=== PATIENT | female | born 1950 | race Caucasian/White ===

== ENCOUNTER 2017-01-24 12:37 | Outpatient (CLI) | payer MEDICARE ==
--- NOTE | 2017-01-27 13:59 | DEXA Report ---
DEXA SCAN : 01/26/2017 CLINICAL INDICATION: Postmenopausal osteopenia. TECHNIQUE: Dual energy x-ray absorptiometry (DXA) was performed on a [place] system. Regions measured are the AP spine, femoral neck, and, if needed, forearm. COMPARISON: None. In accordance with the International Society for Clinical Densitometry (ISCD) guidelines, data from previous exams may be reanalyzed using current recommendations and techniques. This is done to allow a more accurate basis for comparison with the current study. FINDINGS: The data for the lumbar spine is as follows: REGION BMD (g/cm/cm) T-SCORE Z-SCORE L1 0.886 -2.0 -0.9 L2 0.912 -2.4 -1.3 L3 1.000 -1.7 -0.6 L4 1.044 -1.3 -0.2 TOTAL 0.967 -1.8 -0.7 NOTE: All evaluable vertebrae are used for classification. The data for the hip is as follows: REGION BMD (g/cm/cm) T-SCORE Z-SCORE Neck 0.863 -1.3 0.0 TOTAL 0.781 -1.8 -0.9 IMPRESSION: THE WHO CLASSIFICATION BASED ON THE INTERNATIONAL REFERENCE STANDARD IS OSTEOPENIA. THE FRACTURE RISK IS INCREASED. RECOMMENDATION: Patients with diagnosis of osteoporosis or osteopenia should have regular bone mineral density assessment. For those eligible for Medicare, routine testing is allowed once every 2 years. Testing frequency can be increased for patients who have rapidly progressing disease or for those who are receiving medical therapy to restore bone mass. COMMENT: World Health Organization (WHO) definitions for osteoporosis and osteopenia: NORMAL BMD: T-score at 1.0 or higher, fracture risk is low. OSTEOPENIA BMD: T-score between 1.0 and -2.5, fracture risk is increased. OSTEOPOROSIS BMD: T-score at 2.5 or lower, fracture risk high. National Osteoporosis Foundation recommends: 1. Obtain adequate dietary calcium (at least 1200 mg per day) and vitamin D (400 -800 international units per day). 2. Participate, as appropriate, in regular weightbearing and muscle- strengthening exercise. 3. Avoid tobacco use and reduce alcohol and caffeine intake. 4. For more detailed information see the website at www.NOF.org. TD: 01/26/2017 09:16 [facility]
== END 2017-01-24 12:38 | disposition home or self-care (01) ==
LOC: DI 12:37
PROVIDERS: ATTEND Family Medicine Addiction Medicine
DX: M85.80 Other specified disorders of bone density and structure, unspecified site (principal)
CPT/HCPCS: 77080

== ENCOUNTER 2017-09-22 08:53 | Emergency (ER) | payer MEDICARE ==
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
[2017-09-22] MEDS ORDERED: diphenhydrAMINE INJ 50 MG/ML VIAL IM STA (09:12)
[2017-09-22] MEDS ORDERED: DEXAMETHASONE 10 MG/ML VIAL PO STA (09:12)
[2017-09-22] MEDS ORDERED: CETIRIZINE 10 MG TABLET PO STA (09:12)
[2017-09-22] MEDS ORDERED: CHERRY SYRUP 10 ML UDC PO ONE (09:21)
[2017-09-22 10:10] VITALS: BP 137/69
== END 2017-09-22 10:10 | disposition home or self-care (01) ==
LOC: ED 08:53
DX: T63.461A Toxic effect of venom of wasps, accidental (unintentional), initial encounter (principal)
CPT/HCPCS: 96372; 99283; A9270; J1200

== ENCOUNTER 2019-02-06 13:07 | Outpatient (CLI) | payer MEDICARE ==
--- NOTE | 2019-02-08 09:15 | DEXA Report ---
Reason: OSTEOPOROSIS Procedure Date: 02/06/2019 Accession Number: [id number] / [id number] Procedure: DEX - Dexa Spine and/or Hip CPT Code: Final Report FULL RESULT: EXAM: Dexa Spine and/or Hip DATE: 02/06/2019 1:28 PM CLINICAL HISTORY: OSTEOPOROSIS TECHNIQUE: Dual energy x-ray absorptiometry (DXA) was performed on a [employer] System. Regions measured are the AP Spine, femoral neck, and if needed forearm. COMPARISON: 01/24/2017. In accordance with the International Society for Clinical Densitometry (ISCD) guidelines, data from previous exams may be reanalyzed using current recommendations and techniques. This is done to allow a more accurate basis for comparison with the current study. FINDINGS: The data for the lumbar spine is as follows: BMD (g/cm/cm) T-SCORE Z-SCORE REGION L1 0.961 -1.4 -0.5 L2 1.026 -1.4 -0.5 L3 1.016 -1.5 -0.6 L4 1.050 -1.3 -0.3 TOTAL 1.014 -1.4 -0.4 NOTE: All evaluable vertebrae are used for classification The data for the hip is as follows: BMD (g/cm/cm) T-SCORE Z-SCORE REGION Neck 0.841 -1.4 -0.2 TOTAL 0.812 -1.6 -0.6 NOTE: The femoral neck or total proximal femur, whichever is lowest, is used for classification. DXA RESULTS SUMMARY: Spine SCAN DATE AGE BMD CHANGE VS CHANGE VS PREVIOUS PREVIOUS % [birth year]2019 [age] 1.014 0.047* 4.9* 01[birth year]/2017 [age] 0.967 * Denotes significant change at the 95% confidence level. Denotes dissimilar scan types or analysis methods. DXA RESULTS SUMMARY: Hip SCAN DATE AGE BMD CHANGE VS CHANGE VS PREVIOUS PREVIOUS % [birth year]2019 [age] 0.812 0.031 4.0 01[birth year]/2017 [age] 0.781 * Denotes significant change at the 95% confidence level. Denotes dissimilar scan types or analysis methods. IMPRESSION: THE WHO CLASSIFICATION BASED ON THE INTERNATIONAL REFERENCE STANDARD IS OSTEOPENIA. THE FRACTURE RISK IS INCREASED. Interval statistically significant decrease in bone density in the lumbar spine. RECOMMENDATION: Patients with diagnosis of osteoporosis or osteopenia should have regular bone mineral density assessment. For those eligible for Medicare, routine testing is allowed once every 2 years. Testing frequency can be increased for patients who have rapidly progressing disease or for those who are receiving medical therapy to restore bone mass. COMMENT: World Health Organization (WHO) definitions for osteoporosis and osteopenia: NORMAL BMD: T-score at -1.0 or higher, fracture risk is low OSTEOPENIA BMD: T-score between -1.0 and -2.5, fracture risk is increased. OSTEOPOROSIS BMD: T-score at -2.5 or lower, fracture risk is high. National Osteoporosis Foundation recommends: 1. Obtain adequate dietary calcium (at least 1200 mg per day) and vitamin D (400-800 international units per day). 2. Participate, as appropriate, in regular weightbearing and muscle-strengthening exercise. 3. Avoid tobacco use and reduce alcohol and caffeine intake. 4. For more detailed information see the website at www.NOF.org.
== END 2019-02-06 13:08 | disposition home or self-care (01) ==
LOC: DI 13:07
PROVIDERS: ATTEND Family Medicine
DX: M85.89 Other specified disorders of bone density and structure, multiple sites (principal)
CPT/HCPCS: 77080

== ENCOUNTER 2021-01-19 10:51 | Outpatient (CLI) | payer MEDICARE ==
--- NOTE | 2021-01-21 14:22 | Mammography Report ---
BILATERAL DIGITAL SCREENING MAMMOGRAM 3D/2D: 01/19/2021 CLINICAL: Routine screening. Comparison is made to exam dated: 11/10/2012 mammogram - [facility]. There are sca ttered fibroglandular elements in both breasts. No significant masses, calcifications, or other findings are seen in either breast. There has been no significant interval change. IMPRESSION: NEGATIVE There is no mammographic evidence of malignancy. A 1 year screening mammogram is recommended. This exam was interpreted at Station ID: [id number]. NOTE: For mammograms, a report in lay terms will be sent to the patient. Approximately 15% of breast malignancies will not be visualized mammographically. In the management of a palpable breast mass, a negative mammogram must not discourage biopsy of a clinically suspicious lesion. Electronically Signed By: Amanda staley/libby:01/20/2021 08:29:18 ACR BI-RADS Category 1: Negative 3341F PARENCHYMAL PATTERN: (A) - The breast(s) demonstrate(s) scattered fibroglandular densities. BI-RADS CATEGORY: (1) - 1 RECOMMENDATION: (ANNUAL) - Recommend routine annual screening mammography. [id number] 1 year screening LATERALITY: (B)
== END 2021-01-19 10:52 | disposition home or self-care (01) ==
LOC: DI.S 10:51
DX: Z12.31 Encounter for screening mammogram for malignant neoplasm of breast (principal)

== ENCOUNTER 2021-03-13 16:10 | Outpatient (CLI) | payer MEDICARE ==
[2021-03-13 20:19] LABS: BILIRUBIN,URINE NEGATIVE (NEGATIVE); GLUCOSE, URINE (UA) NEGATIVE (NEGATIVE); KETONES,URINE (UA) NEGATIVE (NEGATIVE); LEUKOCYTE ESTERASE, URINE NEGATIVE (NEGATIVE); NITRITE,URINE NEGATIVE (NEGATIVE); OCCULT BLOOD,URINE NEGATIVE (NEGATIVE); PROTEIN,URINE NEGATIVE (NEGATIVE); UROBILINOGEN,URINE 0.2 (NORMAL) E.U./dL (NORMAL)
[2021-03-13 20:23] LABS: CLARITY,URINE CLEAR (CLEAR)
== END 2021-03-13 16:11 | disposition home or self-care (01) ==
LOC: LAB.S 16:10
PROVIDERS: ATTEND Physician Assistant
DX: R30.0 Dysuria (principal)
CPT/HCPCS: 81001; 81003; 87086

== ENCOUNTER 2021-04-23 10:07 | Outpatient (CLI) | payer MEDICARE ==
[2021-04-23 14:32] LABS: HCT - HEMATOCRIT 37.9 % (37.0-47.0); HGB - HEMOGLOBIN 11.8 g/dL (12.0-16.0); MEAN CORPUSCULAR HEMOGLOBIN 31.1 pg (27.0-31.0); MEAN CORPUSCULAR HGB CONC 31.1 g/dL (32.0-36.0); MEAN CORPUSCULAR VOLUME 99.7 fL (81.0-99.0); MEAN PLATELET VOLUME 9.6 fL (7.9-10.8); RED BLOOD COUNT 3.8 10^6/uL (4.20-5.40); WHITE BLOOD COUNT 3.6 x10^3/uL (4.8-10.8)
[2021-04-23 14:48] LABS: ALBUMIN 4.3 g/dL (3.2-5.5); ALBUMIN/GLOBULIN RATIO 1.4 (1.0-2.2); ALKALINE PHOSPHATASE 87 IU/L (42-121); ALT ALANINE AMINOTRANSFERASE 13 IU/L (10-60); AST ASPARTATE AMINOTRANSFERASE 18 IU/L (10-42); BILIRUBIN,TOTAL 0.5 mg/dL (0.2-1.0); BUN - BLOOD UREA NITROGEN 16 mg/dL (6-20); CALCIUM 9.3 mg/dL (8.5-10.3); CARBON DIOXIDE - CO2 26 mmol/L (21-32); CHLORIDE 101 mmol/L (101-111); CHOL/HDL RATIO 2.5 (<4.4); CHOLESTEROL 208 mg/dL; CREATININE 0.7 mg/dL (0.4-1.0); GFR - MDRD 82 (>89); GLUCOSE 116 mg/dL (70-100); HDL CHOLESTEROL 84 mg/dL; LDL CHOLESTEROL,CALCULATED 109 mg/dL; LDL/HDL RATIO 1.3 (<4.4); POTASSIUM 4.3 mmol/L (3.5-5.0); SODIUM 136 mmol/L (135-145); TOTAL PROTEIN 7.3 g/dL (6.7-8.2); TRIGLYCERIDES 76 mg/dL; VLDL CHOLESTEROL 15 mg/dL
[2021-04-23 15:02] LABS: ESTIMATED AVERAGE GLUCOSE 97 mg/dL (70-100); THYROID STIMULATING HORMONE 0.82 uIU/mL (0.34-5.60)
== END 2021-04-23 10:08 | disposition home or self-care (01) ==
LOC: LAB.S 10:07
PROVIDERS: ATTEND Physician Assistant
DX: E03.9 Hypothyroidism, unspecified (principal); E55.9 Vitamin D deficiency, unspecified; Z86.2 Personal history of diseases of the blood and blood-forming organs and certain disorders involving the immune mechanism
CPT/HCPCS: 36415; 80053; 80061; 82306; 83036; 83721; 84443; 85027

== ENCOUNTER 2021-11-24 11:43 | Outpatient (CLI) | payer MEDICARE ==
--- NOTE | 2021-11-24 15:50 | XRAY Report ---
PROCEDURE: Foot 3 View RT INDICATIONS: FOOT XRAY TECHNIQUE: 3 views of the foot were acquired. COMPARISON: None FINDINGS: Bones: No fractures or dislocations. No suspicious bony lesions. Severe first metatarsophalangeal joint space narrowing with marginal osteophytes and remodeling of the proximal phalangeal base. Soft tissues: No tibiotalar joint effusion. Achilles tendon appears normal. IMPRESSION: Severe first MTP osteoarthritis Reviewed by: Pascual Sharp MD on 11/24/2021 2:49 PM AKDT Approved by: Pascual Sharp MD on 11/24/2021 2:49 PM AKDT Station ID: [id number]
== END 2021-11-24 11:44 | disposition home or self-care (01) ==
LOC: DI 11:43
PROVIDERS: ATTEND Podiatrist
DX: M19.071 Primary osteoarthritis, right ankle and foot (principal)

== ENCOUNTER 2022-08-04 12:38 | Outpatient (CLI) | payer MEDICARE ==
--- NOTE | 2022-08-05 09:26 | Mammography Report ---
BILATERAL DIGITAL SCREENING MAMMOGRAM 3D/2D: 08/04/2022 CLINICAL: Routine screening. Comparison is made to exam dated: 01/19/2021 mammogram - [facility]. There are scattered areas of fibroglandular density in both breasts (category b / 25%-50% glandular t issue). There is a possible new oval asymmetry in the left breast middle depth lateral region seen on the aircraft systems repairer niocaudal view only. No other significant masses, calcifications, or other findings are seen in either breast. IMPRESSION: INCOMPLETE: NEEDS ADDITIONAL IMAGING EVALUATION The possible new oval asymmetry in the left breast is indeterminate. Additional views with possible ultrasound are recommended. Based on the Tyrer Cuzick model (a risk assessment model) the patients lifetime risk is 2.9% and her 10 year risk is 2.3%. According to the ACR, ACS, and NCCN guidelines, an annual breast MRI exam kuldeep g with mammogram is recommended if the patients lifetime risk is 20% or greater. This exam was interpreted at Station ID: [id number]. NOTE: For mammograms, a report in lay terms will be sent to the patient. Approximately 15% of breast malignancies will not be visualized mammographically. In the management of a palpable breast mass, a negative mammogram must not discourage biopsy of a clinically suspicious lesion. Electronically Signed By: Corby Mendiola M.D. aty/:08/04/2022 17:11:09 ACR BI-RADS Category 0: Incomplete 3340F PARENCHYMAL PATTERN: (A) - The breast(s) demonstrate(s) scattered fibroglandular densities. BI-RADS CATEGORY: (0) - 0 Mammo and [place] [id number] Immediate follow-up LATERALITY: (L)
== END 2022-08-04 12:39 | disposition home or self-care (01) ==
LOC: DI.S 12:38
DX: Z12.31 Encounter for screening mammogram for malignant neoplasm of breast (principal); R92.8 Other abnormal and inconclusive findings on diagnostic imaging of breast

== ENCOUNTER 2022-09-03 10:25 | Outpatient (CLI) | payer MEDICARE ==
--- NOTE | 2022-09-06 11:59 | Ultrasound Report ---
LIMITED ULTRASOUND OF LEFT BREAST: 09/03/2022 CLINICAL: Patient returns today to evaluate a focal asymmetry in the left breast. Comparison is made to exams dated: 09/03/2022 mammogram, 08/04/2022 mammogram, 01/19/2021 mammogram, a nd 11/10/2012 mammogram - [facility]. Real-time ultrasound of the left breast 2-4 o'clock region was performed. Huizar scale images of the real-time examination were reviewed. No significant abnormalities were seen sonographically in the left breast. IMPRESSION: PROBABLY BENIGN There is no abnormality seen in the left breast to correspond with the mammography finding. A follow-up mammogram in 6 months is recommended to demonstrate stability of the mammographic possibl e asymmetry. This exam was interpreted at Station ID: [id number]. Electronically Signed By: Zay Wallis M.D. lc/:09/03/2022 11:40:56 Ultrasound BI-RADS: 3 Probably benign BI-RADS CATEGORY: (3) - 3 Mammogram [id number] 6 month follow-up LATERALITY: (B)
--- NOTE | 2022-09-06 11:59 | Mammography Report ---
UNILATERAL LEFT DIGITAL DIAGNOSTIC MAMMOGRAM 3D/2D WITH SPOT COMPRESSION: 09/03/2022 CLINICAL: Patient returns today to evaluate an asymmetry in the left breast. Comparison is made to exams dated: 08/04/2022 mammogram, 01/19/2021 mammogram, and 11/10/2012 mammogra m - [facility]. There are scattered areas of fibroglandular density in the left breast (category b / 25%-50% glandula r tissue). There is a possible oval asymmetry in the left breast middle depth lateral region seen on the cranioc audal view only. No other significant masses or calcifications are seen in the breast. IMPRESSION: INCOMPLETE: NEEDS ADDITIONAL IMAGING EVALUATION The possible oval asymmetry in the left breast is indeterminate. An ultrasound is recommended. Based on the Tyrer Cuzick model (a risk assessment model) the patients lifetime risk is 2.9% and her 10 year risk is 2.3%. According to the ACR, ACS, and NCCN guidelines, an annual breast MRI exam kuldeep g with mammogram is recommended if the patients lifetime risk is 20% or greater. This exam was interpreted at Station ID: [id number]. NOTE: For mammograms, a report in lay terms will be sent to the patient. Approximately 15% of breast malignancies will not be visualized mammographically. In the management of a palpable breast mass, a negative mammogram must not discourage biopsy of a clinically suspicious lesion. Electronically Signed By: Zay Wallis M.D. lc/:09/03/2022 11:39:11 ACR BI-RADS Category 0: Incomplete 3340F PARENCHYMAL PATTERN: (A) - The breast(s) demonstrate(s) scattered fibroglandular densities. BI-RADS CATEGORY: (0) - 0 Ultrasound [id number] Immediate follow-up LATERALITY: (B)
== END 2022-09-03 10:26 | disposition home or self-care (01) ==
LOC: DI 10:25
PROVIDERS: ATTEND Family Medicine
DX: R92.8 Other abnormal and inconclusive findings on diagnostic imaging of breast (principal)

== ENCOUNTER 2022-09-16 09:55 | Outpatient (CLI) | payer MEDICARE ==
[2022-09-16 14:27] LABS: BASOPHILS % (AUTO) 0.6 %; EOSINOPHILS # (AUTO) 0.1 10^3/uL (0.0-0.7); EOSINOPHILS % (AUTO) 2.7 %; HCT - HEMATOCRIT 42.7 % (37.0-47.0); HGB - HEMOGLOBIN 13.8 g/dL (12.0-16.0); LYMPHOCYTES % (AUTO) 29.3 %; MEAN CORPUSCULAR HEMOGLOBIN 31.1 pg (27.0-31.0); MEAN CORPUSCULAR HGB CONC 32.3 g/dL (32.0-36.0); MEAN CORPUSCULAR VOLUME 96.2 fL (81.0-99.0); MEAN PLATELET VOLUME 9.9 fL (7.9-10.8); MONOCYTES # (AUTO) 0.3 10^3/uL (0.0-1.0); MONOCYTES % (AUTO) 8.5 %; NEUTROPHILS # (AUTO) 1.9 10^3/uL (1.5-6.6); NEUTROPHILS % (AUTO) 58.6 %; PLT - PLATELET COUNT 309 10^3/uL (130-450); RED BLOOD COUNT 4.44 10^6/uL (4.20-5.40); RED CELL DISTRIBUTION WIDTH 12.9 % (12.0-15.0); WHITE BLOOD COUNT 3.3 x10^3/uL (4.8-10.8)
[2022-09-16 15:05] LABS: FERRITIN 17.6 ng/mL (11.0-306.8)
== END 2022-09-16 09:56 | disposition home or self-care (01) ==
LOC: LAB.S 09:55
PROVIDERS: ATTEND Family Medicine
DX: E55.9 Vitamin D deficiency, unspecified (principal); Z78.9 Other specified health status; Z86.2 Personal history of diseases of the blood and blood-forming organs and certain disorders involving the immune mechanism
CPT/HCPCS: 36415; 82306; 82607; 82728; 83540; 84466; 85025

== ENCOUNTER 2023-01-20 11:42 | Outpatient (CLI) | payer MEDICARE ==
--- NOTE | 2023-01-20 13:45 | XRAY Report ---
PROCEDURE: Hand 2 View BILAT INDICATIONS: INFLAMMATORY ARTHRITIS TECHNIQUE: 3 views of the hand(s) acquired. COMPARISON: Same day right wrist radiographs. FINDINGS: Bones: No fractures or dislocations. Mild degenerative changes seen. No osseous erosion. Question pe riarticular lucency the the left hand fourth digit PIP joint. No suspicious bony lesions. Soft tissues: No suspicious soft tissue calcifications or masses. IMPRESSION: Question periarticular lucency at the left hand fourth digit PIP joint. Reviewed by: Jimmy Warren MD on 01/20/2023 1:44 PM PST Approved by: Jimmy Warren MD on 01/20/2023 1:44 PM PST Station ID: [id number]
--- NOTE | 2023-01-20 14:13 | XRAY Report ---
PROCEDURE: Wrist 3 View RT INDICATIONS: INFLAMMATORY ARTHRITIS TECHNIQUE: 3 views of the wrist were acquired. COMPARISON: Same day bilateral hand radiographs. FINDINGS: Bones: No fractures or dislocations. No osseous erosion. No suspicious bony lesions. Mild degener ative changes seen. Soft tissues: No suspicious soft tissue calcifications or masses. IMPRESSION: Mild degenerative changes seen. Reviewed by: Jimmy Warren MD on 01/20/2023 2:12 PM PST Approved by: Jimmy Warren MD on 01/20/2023 2:12 PM PST Station ID: [id number]
[2023-01-20 15:19] LABS: ABSOLUTE RETICS # AUTO 0.079 10^6/uL (0.020-0.110); BASOPHILS % (AUTO) 0.7 %; EOSINOPHILS # (AUTO) 0.1 10^3/uL (0.0-0.7); EOSINOPHILS % (AUTO) 1.7 %; HCT - HEMATOCRIT 39.4 % (37.0-47.0); HGB - HEMOGLOBIN 12.5 g/dL (12.0-16.0); LYMPHOCYTES # (AUTO) 0.8 10^3/uL (1.5-3.5); LYMPHOCYTES % (AUTO) 18.2 %; MEAN CORPUSCULAR HEMOGLOBIN 31.2 pg (27.0-31.0); MEAN CORPUSCULAR HGB CONC 31.7 g/dL (32.0-36.0); MEAN CORPUSCULAR VOLUME 98.3 fL (81.0-99.0); MEAN PLATELET VOLUME 9.7 fL (7.9-10.8); MONOCYTES # (AUTO) 0.3 10^3/uL (0.0-1.0); MONOCYTES % (AUTO) 6.5 %; NEUTROPHILS # (AUTO) 3.4 10^3/uL (1.5-6.6); NEUTROPHILS % (AUTO) 72.7 %; PLT - PLATELET COUNT 332 10^3/uL (130-450); RED BLOOD COUNT 4.01 10^6/uL (4.20-5.40); RED CELL DISTRIBUTION WIDTH 13.1 % (12.0-15.0); RETICULOCYTE COUNT % (AUTO) 1.98 % (0.5-2.3); WHITE BLOOD COUNT 4.6 x10^3/uL (4.8-10.8)
[2023-01-20 15:44] LABS: THYROID STIMULATING HORMONE 0.93 uIU/mL (0.34-5.60)
[2023-01-20 15:45] LABS: % IRON SATURATION 83 % (20-50); CRP - C-REACTIVE PROTEIN < 0.5 mg/dL (<0.5); IRON 269 ug/dL (50-212); TOTAL IRON BINDING CAPACITY 323 ug/dL (250-450); TRANSFERRIN 231 mg/dL (203-362)
[2023-01-20 15:52] LABS: FERRITIN 12.4 ng/mL (11.0-306.8)
--- NOTE | 2023-01-20 18:54 | XRAY Report ---
PROCEDURE: SI Joints INDICATIONS: SI JT DYSFUNCTION, SPRAIN OF SI JT TECHNIQUE: 3 views of the sacroiliac joints were acquired. COMPARISON: None FINDINGS: Bones: No bony erosions or ankylosis. No suspicious bony lesions. No fractures. Soft tissues: Overlying bowel gas pattern is normal. No suspicious soft tissue densities. IMPRESSION: Normal bilateral SI joint radiographs Reviewed by: Pascual Sharp MD on 01/20/2023 5:52 PM AK Approved by: Pascual Sharp MD on 01/20/2023 5:52 PM AKST Station ID: [id number]
[2023-01-20 19:23] LABS: RHEUMATOID FACTOR NEGATIVE (Negative)
--- NOTE | 2023-01-20 19:39 | XRAY Report ---
PROCEDURE: Shoulder 3 View RT INDICATIONS: INFLAMMATORY ARTHRITIS TECHNIQUE: 3 views of the shoulder were acquired. COMPARISON: None FINDINGS: Bones: No fractures or dislocations. No suspicious bony lesions. Visualized ribs appear intact. Soft tissues: No suspicious soft tissue calcifications. IMPRESSION: Unremarkable shoulder radiographs Reviewed by: Pascual Sharp MD on 01/20/2023 6:38 PM AK Approved by: Pascual Sharp MD on 01/20/2023 6:38 PM AK Station ID: [id number]
[2023-01-21 08:10] LABS: THYROID PEROXIDASE (TPO) AB 11 IU/mL (0-34)
[2023-01-21 20:07] LABS: THYROGLOBULIN ANTIBODY <1.0 IU/mL (0.0-0.9)
[2023-01-22 14:08] LABS: CYCLIC CITRULLINATED PEP IGG/A 4 units (0-19)
[2023-01-23 17:08] LABS: ANTINUCLEAR ANTIBODIES IFA Negative (.)
== END 2023-01-20 11:43 | disposition home or self-care (01) ==
LOC: DI.S 11:42
PROVIDERS: ATTEND Internal Medicine
DX: M53.3 Sacrococcygeal disorders, not elsewhere classified (principal); S33.6XXA Sprain of sacroiliac joint, initial encounter; E55.9 Vitamin D deficiency, unspecified; Z86.2 Personal history of diseases of the blood and blood-forming organs and certain disorders involving the immune mechanism; Z86.39 Personal history of other endocrine, nutritional and metabolic disease; M19.031 Primary osteoarthritis, right wrist
CPT/HCPCS: 36415; 81374; 82306; 82607; 82728; 82746; 83540; 84439; 84443; 84466; 84481; 85025; 85045; 85651; 86038; 86140; 86200; 86376; 86430; 86800

== ENCOUNTER 2023-02-03 10:44 | Outpatient (CLI) | payer MEDICARE ==
[2023-02-03 14:50] LABS: BASOPHILS % (AUTO) 0.4 %; EOSINOPHILS # (AUTO) 0.1 10^3/uL (0.0-0.7); EOSINOPHILS % (AUTO) 2.7 %; HCT - HEMATOCRIT 40.3 % (37.0-47.0); HGB - HEMOGLOBIN 12.5 g/dL (12.0-16.0); LYMPHOCYTES % (AUTO) 22.4 %; MEAN PLATELET VOLUME 9.5 fL (7.9-10.8); MONOCYTES # (AUTO) 0.3 10^3/uL (0.0-1.0); MONOCYTES % (AUTO) 7.6 %; NEUTROPHILS % (AUTO) 66.5 %; PLT - PLATELET COUNT 303 10^3/uL (130-450); RED BLOOD COUNT 4.03 10^6/uL (4.20-5.40); RED CELL DISTRIBUTION WIDTH 12.8 % (12.0-15.0); WHITE BLOOD COUNT 4.5 x10^3/uL (4.8-10.8)
[2023-02-03 15:16] LABS: FERRITIN 13.4 ng/mL (11.0-306.8)
== END 2023-02-03 10:45 | disposition home or self-care (01) ==
LOC: LAB.S 10:44
PROVIDERS: ATTEND Internal Medicine
DX: Z86.2 Personal history of diseases of the blood and blood-forming organs and certain disorders involving the immune mechanism (principal)
CPT/HCPCS: 36415; 82728; 83540; 84466; 85025

== ENCOUNTER 2023-03-02 10:07 | Outpatient (CLI) | payer MEDICARE ==
[2023-03-02 15:02] LABS: % IRON SATURATION 13 % (20-50); CHOLESTEROL 162 mg/dL; HDL CHOLESTEROL 83 mg/dL; IRON 46 ug/dL (50-212); LDL CHOLESTEROL,CALCULATED 67 mg/dL; LDL/HDL RATIO 0.8 (<4.4); TOTAL IRON BINDING CAPACITY 358 ug/dL (250-450); TRANSFERRIN 256 mg/dL (203-362); TRIGLYCERIDES 58 mg/dL (48-352); VLDL CHOLESTEROL 12 mg/dL
[2023-03-02 15:35] LABS: ESTIMATED AVERAGE GLUCOSE 105 mg/dL (70-100); HEMOGLOBIN A1c% 5.3 % (4.27-6.07)
--- NOTE | 2023-03-02 15:36 | XRAY Report ---
PROCEDURE: Knee 1-2V BL INDICATIONS: OTHER SPECIFIED ARTHRITIS OF KNEE TECHNIQUE: 4 views of the knee(s) were acquired. COMPARISON: None. FINDINGS: Bones: Mild degenerative changes, particularly the medial compartments. No displaced fracture or disl ocation. Soft tissues: No significant knee joint effusion bilaterally. No suspicious calcifications. Patellar enthesopathy. IMPRESSION: Mild degenerative changes. If there is high concern for further derangement, consider MRI evaluation. Reviewed by: Zay Wallis MD on 03/02/2023 3:35 PM PST Approved by: Zay Wallis MD on 03/02/2023 3:35 PM PST Station ID: [id number]
--- NOTE | 2023-03-02 15:38 | XRAY Report ---
PROCEDURE: Hips w/Pelvis 2-3V BL INDICATIONS: PAIN IN UNSPECIFIED HIP TECHNIQUE: 4 view(s) of the hip were acquired. COMPARISON: None FINDINGS: Bones: Moderate left and mild right hip arthrosis. Prominent of the left femoral head neck junction w ith osteophyte formation. No displaced acute fracture. No dislocation. Partially seen lumbar degenera tive changes. Soft tissues: No suspicious calcifications. Moderate fecal loading. IMPRESSION: Moderate left and mild right hip arthrosis. Prominence of the left femoral head neck junction with os teophytes, which can be associated with impingement. If there is high concern for further derangement, consider MRI evaluation. Reviewed by: Zay Wallis MD on 03/02/2023 3:37 PM PST Approved by: Zay Wallis MD on 03/02/2023 3:37 PM PST Station ID: [id number]
== END 2023-03-02 10:08 | disposition home or self-care (01) ==
LOC: DI.S 10:07
PROVIDERS: ATTEND Internal Medicine
DX: M16.0 Bilateral primary osteoarthritis of hip (principal); M25.752 Osteophyte, left hip; M17.0 Bilateral primary osteoarthritis of knee; Z86.2 Personal history of diseases of the blood and blood-forming organs and certain disorders involving the immune mechanism; Z13.220 Encounter for screening for lipoid disorders; Z13.228 Encounter for screening for other metabolic disorders
CPT/HCPCS: 36415; 80061; 82607; 83036; 83540; 83721; 84466

== ENCOUNTER 2023-03-17 10:30 | Outpatient (CLI) | payer MEDICARE | END 2023-03-17 10:31 | disposition home or self-care (01) | LOC: LAB.S 10:30 | PROVIDERS: ATTEND Internal Medicine | DX: Z91.018 Allergy to other foods (principal) | CPT/HCPCS: 81599; 86003 ==

== ENCOUNTER 2023-03-29 12:30 | Outpatient (CLI) | payer MEDICARE ==
--- NOTE | 2023-03-30 09:31 | Mammography Report ---
UNILATERAL LEFT DIGITAL DIAGNOSTIC MAMMOGRAM 3D/2D: 03/29/2023 CLINICAL: Patient returns for a 6 month follow up of the left breast. Comparison is made to exams dated: 09/03/2022 mammogram, 08/04/2022 mammogram, and 01/19/2021 mammogra m - [facility]. There are scattered areas of fibroglandular density in the left breast (category b / 25%-50% glandula r tissue). There is an asymmetry in the left breast middle depth outer region seen on the craniocaudal view only , not significantly changed since 08/04/2022. No other significant masses or calcifications are seen in the breast. IMPRESSION: PROBABLY BENIGN Left breast asymmetry outer middle depth, stable since 08/04/2022. No prior ultrasound correlate. Find ing is probably benign. Recommend left breast mammogram with possible ultrasound in 6 months to heidi nagy 1 year stability. Patient will be due for bilateral mammogram at that time. Findings and recommendations were conveyed to the patient during today's evaluation. Based on the Tyrer Cuzick model (a risk assessment model) the patient's lifetime risk is 2.9% and her 10 year risk is 2.3%. According to the ACR, ACS, and NCCN guidelines, an annual breast MRI exam kuldeep g with mammogram is recommended if the patient's lifetime risk is 20% or greater. This exam was interpreted at Station ID: [id number]. NOTE: For mammograms, a report in lay terms will be sent to the patient. Approximately 15% of breast malignancies will not be visualized mammographically. In the management of a palpable breast mass, a negative mammogram must not discourage biopsy of a clinically suspicious lesion. Electronically Signed By: Caroline Lee M.D., PH.D eb/:03/29/2023 13:30:18 ACR BI-RADS Category 3: Probably benign 3343F PARENCHYMAL PATTERN: (A) - The breast(s) demonstrate(s) scattered fibroglandular densities. BI-RADS CATEGORY: (3) - 3 Mammo and [place] [id number] 6 month follow-up LATERALITY: (B)
== END 2023-03-29 12:31 | disposition home or self-care (01) ==
LOC: DI 12:30
PROVIDERS: ATTEND Internal Medicine
DX: R92.8 Other abnormal and inconclusive findings on diagnostic imaging of breast (principal); R92.322 Mammographic fibroglandular density, left breast

== ENCOUNTER 2023-03-29 12:32 | Outpatient (CLI) | payer MEDICARE ==
--- NOTE | 2023-03-29 19:35 | MRI Report ---
PROCEDURE: Shoulder RT WO INDICATIONS: ROTATOR CUFF DISORDER TECHNIQUE: Noncontrast oblique coronal T2 fast spin echo with fat saturation, oblique sagittal T1 spin echo and T2 fast spin echo with fat saturation, axial T1 spin echo and T2 fast spin echo with fat saturation t hrough the shoulder. COMPARISON: None. FINDINGS: Image quality: Moderate motion artifact Rotator cuff Bulk: Mild scattered rotator cuff fatty infiltration Teres minor: Intact Supraspinatus: Moderate to severe tendinosis. Partial-thickness bursal tear at the proximal tendon. P artial thickness articular sided tear near the mid and distal tendon. Infraspinatus: Mild to moderate tendinosis. Partial-thickness articular tear. Subscapularis: Moderate to severe tendinosis. Suspected partial-thickness interstitial tears Bones and bursae GH joint: Moderate degenerative changes, and subchondral cystic changes AC joint: Moderate degenerative changes Humeral head: Subchondral cystic changes likely insertional ganglions and geodes Scapula and acromion: No acute fracture Bursa: Mild to moderate bursal fluid Capsule Labrum: Circumferential attenuation. Labrum is not well evaluated on this study. Possible superior la bral scarring from tear. Long head biceps tendon: Diminutive in the intra-articular aspect, likely highly tendinopathy and par tially torn. IGHL: Mild pericapsular edema Rotator interval: Edematous. Soft tissues: No axillary adenopathy. Lungs are not well seen. IMPRESSION: Moderate glenohumeral and acromioclavicular degenerative changes. Subchondral humeral and glenoid cys ts, likely degenerative insertional ganglions and geodes. Moderate to severe rotator cuff tendinosis and multifocal partial-thickness tears, no full-thickness defect with tendinous retraction identified. Long head biceps tendon diminutive appearance and tendinopathy. Adjacent attenuated labrum likely deg enerative, with possible scarring at the superior labrum representing a tear with scar/remodeling. Bursitis and capsulitis. Moderate motion artifact limits evaluation. Reviewed by: Zay Wallis MD on 03/29/2023 7:34 PM PST Approved by: Zay Wallis MD on 03/29/2023 7:34 PM PST Station ID: [id number]
== END 2023-03-29 12:33 | disposition home or self-care (01) ==
LOC: DI 12:32
PROVIDERS: ATTEND Internal Medicine
DX: M19.011 Primary osteoarthritis, right shoulder (principal); M25.811 Other specified joint disorders, right shoulder; M75.111 Incomplete rotator cuff tear or rupture of right shoulder, not specified as traumatic; M75.81 Other shoulder lesions, right shoulder; M75.51 Bursitis of right shoulder; M77.8 Other enthesopathies, not elsewhere classified

== ENCOUNTER 2023-06-01 11:07 | Outpatient (CLI) | payer MEDICARE ==
[2023-06-01 14:40] LABS: BASOPHILS % (AUTO) 0.6 %; EOSINOPHILS # (AUTO) 0.1 10^3/uL (0.0-0.7); EOSINOPHILS % (AUTO) 3.2 %; HCT - HEMATOCRIT 38.5 % (37.0-47.0); HGB - HEMOGLOBIN 11.7 g/dL (12.0-16.0); LYMPHOCYTES # (AUTO) 0.8 10^3/uL (1.5-3.5); LYMPHOCYTES % (AUTO) 24.3 %; MEAN CORPUSCULAR HEMOGLOBIN 29.2 pg (27.0-31.0); MEAN CORPUSCULAR HGB CONC 30.4 g/dL (32.0-36.0); MEAN PLATELET VOLUME 9.8 fL (7.9-10.8); MONOCYTES # (AUTO) 0.3 10^3/uL (0.0-1.0); MONOCYTES % (AUTO) 9.2 %; NEUTROPHILS # (AUTO) 2.2 10^3/uL (1.5-6.6); NEUTROPHILS % (AUTO) 62.4 %; PLT - PLATELET COUNT 341 10^3/uL (130-450); RED BLOOD COUNT 4.01 10^6/uL (4.20-5.40); RED CELL DISTRIBUTION WIDTH 16.7 % (12.0-15.0); WHITE BLOOD COUNT 3.5 x10^3/uL (4.8-10.8)
[2023-06-01 15:17] LABS: FERRITIN 16.9 ng/mL (11.0-306.8)
== END 2023-06-01 11:08 | disposition home or self-care (01) ==
LOC: LAB.S 11:07
PROVIDERS: ATTEND Internal Medicine
DX: E55.9 Vitamin D deficiency, unspecified (principal); Z86.2 Personal history of diseases of the blood and blood-forming organs and certain disorders involving the immune mechanism; D50.9 Iron deficiency anemia, unspecified
CPT/HCPCS: 36415; 82306; 82607; 82728; 83540; 84466; 85025

== ENCOUNTER 2023-06-14 11:08 | Outpatient (CLI) | payer MEDICARE ==
[2023-06-14 15:53] LABS: THYROID STIMULATING HORMONE 0.68 uIU/mL (0.34-5.60)
== END 2023-06-14 11:09 | disposition home or self-care (01) ==
LOC: LAB.S 11:08
PROVIDERS: ATTEND Internal Medicine
DX: R78.89 Finding of other specified substances, not normally found in blood (principal); Z86.39 Personal history of other endocrine, nutritional and metabolic disease
CPT/HCPCS: 36415; 84439; 84443; 84481

== ENCOUNTER 2023-06-29 11:11 | Outpatient (CLI) | payer MEDICARE ==
[2023-06-29 15:10] LABS: THYROID STIMULATING HORMONE 0.48 uIU/mL (0.34-5.60)
[2023-06-29 15:17] LABS: FERRITIN 15.8 ng/mL (11.0-306.8)
== END 2023-06-29 11:12 | disposition home or self-care (01) ==
LOC: LAB.S 11:11
PROVIDERS: ATTEND Internal Medicine
DX: Z86.2 Personal history of diseases of the blood and blood-forming organs and certain disorders involving the immune mechanism (principal); Z86.39 Personal history of other endocrine, nutritional and metabolic disease
CPT/HCPCS: 36415; 82728; 83540; 84439; 84443; 84466; 84481

== ENCOUNTER 2023-08-04 09:05 | Outpatient (CLI) | payer MEDICARE ==
--- NOTE | 2023-08-04 12:54 | DEXA Report ---
PROCEDURE: Dexa Spine and/or Hip INDICATIONS: OSTEOPENIA TECHNIQUE: Dual energy x-ray absorptiometry (DXA) was performed on a [employer] System. Regions measur ed are the AP Spine, femoral neck, and if needed forearm. COMPARISON: DEXA 02/06/2019 FINDINGS: Lumbar Spine: Bone Mineral Density: 1.0 780 g/cm/cm,T score: -0.8 compared to -1.4. Left Femoral Neck: Bone Mineral Density: 0.920 g/cm/cm, T score: -0.8 compared to -1.4. Left Hip: Bone Mineral Density: 0.836 g/cm/cm,T score: -1.4, compared to -1.6. (T score greater or equal to -1.0: NORMAL) (T score from -1.1 to -2.4: OSTEOPENIA) (T score less than or equal to -2.5 to: OSTEOPOROSIS) Impression: By WHO criteria, this patient has mild osteopenia in the left hip. It is noted overall bone mineral d ensity has improved with normal bone mineral density compared to previous osteopenia in the lumbar sp ine and femoral neck. Patients with diagnosis of osteoporosis or osteopenia should have regular bone mineral density assess ment. For those eligible for Medicare, routine testing is allowed once every 2 years. Testing frequ ency can be increased for patients who have rapidly progressing disease or for those who are receivin g medical therapy to restore bone mass. Reviewed by: Deirdre Horn MD on 08/04/2023 12:53 PM PDT Approved by: Deirdre Horn MD on 08/04/2023 12:53 PM PDT Station ID: [id number]
== END 2023-08-04 09:06 | disposition home or self-care (01) ==
LOC: DI 09:05
PROVIDERS: ATTEND Internal Medicine
DX: M85.88 Other specified disorders of bone density and structure, other site (principal)